=== PATIENT | male | born 2000 | race Two or more races ===

== ENCOUNTER 2025-03-12 21:59 | Emergency (ER) | payer MEDICAID, SELFPAY ==
[2025-03-12 22:00] VITALS: BMI 25.1
[2025-03-12 22:14] VITALS: BP 110/73; PULSE 89; RESP 18; TEMP 37.6; O2SAT 97
--- NOTE | 2025-03-12 22:40 | EDNOTE_ITS ---
ED Skin Abcess FB-RME/HPI General Chief complaint: Skin/Abscess/Foreign Body Stated complaint: POSSIBLE SPIDER BITE TO RIGHT UPPER BACK Time Seen by Provider: 03/12/25 22:18 Arrival date/time: 03/12/25 21:59 24M with history of cocaine use presents to ED with possible spider bite on R chest. Patient did not see it happen, but states it was itchy first. Limitations: no limitations Related Data Previous Rx's ?Medication ?Instructions ?Recorded cetirizine 10 mg tablet (Zyrtec) 10 mg PO QDAY PRN all ergy symptoms 09/05/20 #30 tabs sodium chloride 0.65 % nasal spray 2 spray intranasal QID PRN nasal 09/05/20 aerosol (Saline Nasal) congestion #60 mL mupirocin 2 % topical ointment 1 applic topical BID 1 week #15 03/12/25 grams Allergies Allergy/AdvReac Type Severity Reaction Status Date / Time papaya Allergy Severe Anaphylaxis Verified 09/05/20 19:48 Review of Systems Review of Systems Systems Reviewed: All systems reviewed, normal except as documented Integumentary/Breasts Skin/Breast: Reports as per HPI, Reports pruritus and Reports rash Past Medical History Past Medical History CARDIAC: Negative Congestive Heart Failure RESPIRATORY: Negative Chronic Obstructive Pulmonary Disease (COPD) GENITOURINARY: Negative Renal Disease ENDOCRINE: Negative Diabetes Mellitus Type 1 or Diabetes Mellitus Type 2 Social History SMOKING STATUS: Never smoker SUBSTANCE USE: marijuana and crack/cocaine ED Exam General Limitations: Present no limitations General appearance: Present alert and in no apparent distress Head Head exam: Present atraumatic Neck Neck exam: Present normal inspection, full ROM and trachea midline Chest Chest inspection: Present symmetric chest wall rise and other (R skin blister 2 cm) Extremities Exam Extremities exam: Present normal inspection and full ROM Neurological Exam Neurological exam: Present alert and oriented X3 Psychiatric Psychiatric exam: Present normal affect and normal mood Skin Skin exam: Present warm, dry, intact and normal color Course Quality Measures none Orders Category Date Time Status Wound Care NOW Care 03/12/25 22:19 Active Vital Signs Vital signs: Vital Signs Temperature 99.6 F 03/12/25 22:14 Pulse Rate 89 03/12/25 22:14 Respiratory Rate 18 03/12/25 22:14 Blood Pressure 110/73 03/12/25 22:14 Pulse Oximetry (%) 97 03/12/25 22:14 Oxygen Delivery Method Room Air 03/12/25 22:14 O2 at 97% on RA and WNLs Skin / Abscess / Foreign Body MDM Narrative MDM Narrative:: 24M with history of cocaine use presents to ED with possible spider bite on R chest. Patient did not see it happen, but states it was itchy first. Physical exam reveals 2 cm fluid-filled on R chest. No pus in blister. Patient is afebrile, calm, and alert. Blister drained and wound dressed. [employer] given. Patient data External records reviewed:: [facility] previous records Clinical information provided by:: patient Social determinants that could affect healthcare access:: alcohol use Patient has the following chronic illnesses:: cocaine How is presenting disease/condition affected by chronic disease/condition?: exacerbated by Evaluation data The following diagnostics were reviewed and interpreted by me:: other (specify) (none) Lab and/or radiology exams considered but not ordered:: not ordered Interpretation Summary: n/a Medications / Prescriptions Medications or Prescriptions considered but not ordered:: not ordered Medication administrations:: n/a Consultations Consultation(s) initiated? (list below): No Diagnosis Skin/Abscess Differential Diagnosis: abscess of skin or subcutaneous tissue, viral exanthem, dermatophytosis, urticaria, herpes zoster, allergic reaction to drug, cellulitis, eczema, insect bites, impetigo, contact dermatitis and other (skin blister) Most likely diagnosis given after review of the tests above:: skin blister Admission Indicated Admission indicated?: not indicated Admission Request Was there a request for admission?: No Disposition Plan Disposition Plan: Discharge Discharge Attestation Discharge Attestation: The patient and all family members were given an opportunity to ask questions and understood the discharge instructions. Discharge instructions specifically effects, indications for sooner follow up or return to the emergency department, and the expected course of current diagnosis. Patient condition: Stable Discharge Plan Plan Patient Disposition: HOME (Self Care) Discharge Disposition comment: Stable Prescriptions/Referrals Prescriptions/Med Rec: New mupirocin 2 % ointment 1 applic topical BID 7 Days Qty: 15 0RF No Action sodium chloride [Saline Nasal] 0.65 % aerosol,spray 2 spray intranasal QID PRN (Reason: nasal congestion) Qty: 60 0RF cetirizine [Zyrtec] 10 mg tablet 10 mg PO QDAY PRN (Reason: allergy symptoms) Qty: 30 0RF Rx Instructions: Start after 7 days of Zyrtec-D Problem List Clinical Impression: Blister of skin Patient/Caregiver Discharge Instructions Education Materials: ED Blister (Adult) Additional Instructions: Please follow-up with PCP within 24-48 hours and return immediately if symptoms worsen. Keep wound clean/covered as shown in ED. Print Language: Indonesian Stand Alone Forms: Patient Portal Info Letter CHERI/MELODIE Supervising Physician CHERI/MELODIE Supervising Physician: Dr. Bro
== END 2025-03-12 22:39 | disposition home or self-care (01) ==
LOC: SERX 23:09
PROVIDERS: Emergency Provider Emergency Medicine; PCP Family Medicine
DX: S20.321A Blister (nonthermal) of right front wall of thorax, initial encounter (principal); X58.XXXA Exposure to other specified factors, initial encounter
CPT/HCPCS: 99283